=== PATIENT | female | born 1950 | race Caucasian/White ===

== ENCOUNTER 2018-02-04 17:18 | Outpatient (CLI) | payer OTHER | END 2018-02-04 17:19 | disposition home or self-care (01) | LOC: FCC-LAB 17:18 | PROVIDERS: ATTEND Family Medicine | DX: R19.7 Diarrhea, unspecified (principal) | CPT/HCPCS: 36415; 80053; 85025; 87493 ==

== ENCOUNTER 2018-04-08 08:24 | Outpatient (CLI) | END 2018-04-08 08:25 | disposition home or self-care (01) | LOC: LAB 08:24 | PROVIDERS: ATTEND Family Medicine | DX: A04.71 Enterocolitis due to Clostridium difficile, recurrent (principal) | CPT/HCPCS: 87493 ==

== ENCOUNTER 2019-04-04 12:49 | Outpatient (CLI) ==
--- NOTE | 2019-04-04 15:07 | DEXA ---
EXAM: Bone Densitometry DEXA HISTORY: Asymptomatic menopausal state FINDINGS: DEXA scan of the lumbar spine was performed. Quality of the study is good. Bone mineral density is 0.947 grams per square centimeter. T-score is negative 1.9. Z-score is negative 0.7. DEXA scan right and left hip was performed. Quality of the study is good. Bone mineral density mean total as 0.727 grams per square centimeter. T-score is negative 2.2. Z-score is negative 1.1. IMPRESSION: 1. Lumbar spine: Osteopenia. 2. Right and left hip: Osteopenia 3. 10 year risk for major osteoporotic fracture is 12.8% and for hip fracture is 2.7%. Reference Values according to World Health Organization criteria: T score greater than -1 is normal T score -1 to -2.5 is osteopenia T score less than -2.5 is osteoporosis.
== END 2019-04-04 12:50 | disposition home or self-care (01) ==
LOC: RAD 12:49
PROVIDERS: ATTEND Family Medicine
DX: Z78.0 Asymptomatic menopausal state (principal)